=== PATIENT | male | born 1940 | race Caucasian/White ===

== ENCOUNTER 2020-06-20 11:08 | Inpatient (IN) ==
[2020-06-20] MEDS ORDERED: GuaiFENesin Liq 200 MG/10 ML UDC PO PRN (22:10)
[2020-06-20] MEDS: Sulfamethoxazole/Trimeth DS 1 EACH TABLET PO SCH (22:45)
[2020-06-20] MEDS: *HR* OxyCODONE Immed Rel 5 MG TABLET PO PRN (22:46)
[2020-06-20] MEDS ORDERED: Melatonin 3 MG TABLET PO ONE (23:01)
[2020-06-21] MEDS: *HR* OxyCODONE Immed Rel 5 MG TABLET PO PRN ×2 (05:29→20:34)
[2020-06-21 05:55] LABS: INR 1.4; Prothrombin Time 15.6 Seconds (9.4-12.1)
[2020-06-21 05:57] LABS: Basophils % 0.3 %; Eosinophils # 0.2 K/mcL (0.0-0.6); Hematocrit 38.6 % (37.5-50.1); Hemoglobin 12.7 g/dL (12.9-16.9); Immature Granulocytes % 0.5 % (0-4); Lymphocytes # 2.9 K/mcL (0.6-4.6); Lymphocytes % 24.5 %; Mean Corpuscular HGB Conc 32.9 g/dL (31.6-35.5); Mean Corpuscular Hemoglobin 27.5 pg (28.0-33.3); Mean Corpuscular Volume 83.5 fL (83.0-100.0); Mean Platelet Volume 10.3 fL (9.4-12.4); Monocytes # 1.3 K/mcL (0.0-1.3); Monocytes % 10.6 %; Neutrophils # 7.5 K/mcL (1.6-8.9); Platelet Count 300 K/mcL (140-400); Red Blood Count 4.62 M/mcL (4.19-5.50); Red Cell Distribution Width 15.7 % (11.5-14.5); Segmented Neutrophils % 62.1 %
[2020-06-21 05:58] LABS: Activated Partial Thrombo Time 33.7 Seconds (26.0-36.0)
[2020-06-21 06:07] LABS: BUN/Creatinine Ratio 33 (6-26); Blood Urea Nitrogen 28 mg/dL (8-23); Carbon Dioxide 25 mEq/L (23-29); Chloride 102 mEq/L (98-107); Glucose 102 mg/dL (70-105); Magnesium 1.8 mg/dL (1.6-2.6); Osmolality,Calculated 284 (280-300); Potassium 3.7 mEq/L (3.5-5.1); Sodium 134 mEq/L (136-145); eGFR For African Americans > 60 (> 60); eGFR For Non-African Americans > 60 (> 60)
[2020-06-21] MEDS: Sulfamethoxazole/Trimeth DS 1 EACH TABLET PO SCH ×2 (08:23→20:33)
[2020-06-21] MEDS: Furosemide 20 MG TABLET PO SCH (08:23)
[2020-06-21] MEDS: Sennosides 8.6 MG TABLET PO SCH (08:23)
[2020-06-21] MEDS: lisinopriL 20 MG TABLET PO SCH (08:23)
[2020-06-21] MEDS: *HR* Amiodarone 200 MG TABLET PO SCH (08:23)
[2020-06-21] MEDS ORDERED: Melatonin 3 MG TABLET PO SCH (21:00)
[2020-06-22] MEDS: Sennosides 8.6 MG TABLET PO SCH (08:42)
[2020-06-22] MEDS: Sulfamethoxazole/Trimeth DS 1 EACH TABLET PO SCH (08:42)
[2020-06-22] MEDS: *HR* Amiodarone 200 MG TABLET PO SCH (08:42)
[2020-06-22] MEDS: lisinopriL 20 MG TABLET PO SCH (08:42)
[2020-06-22] MEDS: Furosemide 20 MG TABLET PO SCH (08:42)
[2020-06-22] MEDS: *HR* OxyCODONE Immed Rel 5 MG TABLET PO PRN (08:42)
[2020-06-22 17:38] VITALS: BP 115/70
== END 2020-06-22 18:25 | disposition short-term general hospital (02) | DRG 945 ==
LOC: INPGRE 19:20
PROVIDERS: ADMIT Family Medicine; ATTEND Family Medicine

== ENCOUNTER 2020-07-04 17:38 | Inpatient (IN) ==
[2020-07-04] MEDS ORDERED: Albuterol 2.5 MG/3 ML NEBULIZER IH PRN (18:22)
[2020-07-04] MEDS: *HR* OxyCODONE Immed Rel 5 MG TABLET PO PRN (20:02)
[2020-07-04] MEDS: Budesonide/Formoterol 160/4.5 1 PUFF INH IH SCH (21:22)
[2020-07-05 06:09] LABS: Basophils % 0.2 %; Eosinophils # 0.3 K/mcL (0.0-0.6); Eosinophils % 2.4 %; Hematocrit 40.6 % (37.5-50.1); Hemoglobin 12.8 g/dL (12.9-16.9); Immature Granulocytes % 0.5 % (0-4); Lymphocytes % 22.5 %; Mean Corpuscular HGB Conc 31.5 g/dL (31.6-35.5); Mean Corpuscular Hemoglobin 27.4 pg (28.0-33.3); Mean Corpuscular Volume 86.9 fL (83.0-100.0); Mean Platelet Volume 10.3 fL (9.4-12.4); Monocytes % 8.4 %; Platelet Count 295 K/mcL (140-400); Red Blood Count 4.67 M/mcL (4.19-5.50); Red Cell Distribution Width 15.9 % (11.5-14.5); White Blood Count 12.2 K/mcL (4.3-11.1)
[2020-07-05 06:11] LABS: Lymphocytes # 2.8 K/mcL (0.6-4.6); Neutrophils # 8.1 K/mcL (1.6-8.9)
[2020-07-05 06:25] LABS: BUN/Creatinine Ratio 44 (6-26); Blood Urea Nitrogen 34 mg/dL (8-23); Calcium 8.8 mg/dL (8.6-10.3); Carbon Dioxide 25 mEq/L (23-29); Chloride 104 mEq/L (98-107); Glucose 94 mg/dL (70-105); Osmolality,Calculated 289 (280-300); Potassium 4.1 mEq/L (3.5-5.1); Sodium 136 mEq/L (136-145); eGFR For African Americans > 60 (> 60); eGFR For Non-African Americans > 60 (> 60)
[2020-07-05] MEDS ORDERED: Tiotropium 18 MCG inhalation IH ONE (07:35)
[2020-07-05] MEDS: Tiotropium 18 MCG inhalation IH SCH (07:39)
[2020-07-05] MEDS: Budesonide/Formoterol 160/4.5 1 PUFF INH IH SCH ×2 (07:39→20:19)
[2020-07-05] MEDS: Furosemide 40 MG TABLET PO SCH (08:53)
[2020-07-05] MEDS: *HR* Amiodarone 200 MG TABLET PO SCH (08:53)
[2020-07-05] MEDS: Sennosides 8.6 MG TABLET PO SCH (08:53)
[2020-07-05] MEDS: lisinopriL 20 MG TABLET PO SCH (08:53)
[2020-07-05] MEDS: Melatonin 3 MG TABLET PO PRN (20:36)
[2020-07-05] MEDS: *HR* OxyCODONE Immed Rel 5 MG TABLET PO PRN (20:36)
[2020-07-06] MEDS: Budesonide/Formoterol 160/4.5 1 PUFF INH IH SCH ×2 (07:45→21:31)
[2020-07-06] MEDS: Tiotropium 18 MCG inhalation IH SCH (07:46)
[2020-07-06] MEDS: *HR* Amiodarone 200 MG TABLET PO SCH (08:54)
[2020-07-06] MEDS: Sennosides 8.6 MG TABLET PO SCH (08:54)
[2020-07-06] MEDS: lisinopriL 20 MG TABLET PO SCH (08:54)
[2020-07-06] MEDS: Furosemide 40 MG TABLET PO SCH (08:54)
[2020-07-06] MEDS: Melatonin 3 MG TABLET PO PRN (21:29)
[2020-07-07] MEDS: *HR* OxyCODONE Immed Rel 5 MG TABLET PO PRN ×2 (06:13→21:31)
[2020-07-07] MEDS: Budesonide/Formoterol 160/4.5 1 PUFF INH IH SCH ×2 (07:21→17:41)
[2020-07-07] MEDS: Tiotropium 18 MCG inhalation IH SCH (07:22)
[2020-07-07] MEDS: *HR* Amiodarone 200 MG TABLET PO SCH (08:22)
[2020-07-07] MEDS: Furosemide 40 MG TABLET PO SCH (08:23)
[2020-07-07] MEDS: Sennosides 8.6 MG TABLET PO SCH (08:23)
[2020-07-07] MEDS: lisinopriL 20 MG TABLET PO SCH (08:23)
[2020-07-08] MEDS: *HR* OxyCODONE Immed Rel 5 MG TABLET PO PRN ×2 (05:15→22:03)
[2020-07-08] MEDS: Tiotropium 18 MCG inhalation IH SCH (06:58)
[2020-07-08] MEDS: Budesonide/Formoterol 160/4.5 1 PUFF INH IH SCH ×2 (06:58→21:37)
[2020-07-08] MEDS: Sennosides 8.6 MG TABLET PO SCH (08:42)
[2020-07-08] MEDS: lisinopriL 20 MG TABLET PO SCH (08:42)
[2020-07-08] MEDS: Furosemide 40 MG TABLET PO SCH (08:42)
[2020-07-08] MEDS: Famotidine 20 MG TABLET PO SCH (08:42)
[2020-07-08] MEDS: *HR* Amiodarone 200 MG TABLET PO SCH (08:42)
[2020-07-09] MEDS: *HR* OxyCODONE Immed Rel 5 MG TABLET PO PRN ×2 (05:12→21:41)
[2020-07-09] MEDS: *HR* Amiodarone 200 MG TABLET PO SCH (08:24)
[2020-07-09] MEDS: Furosemide 40 MG TABLET PO SCH (08:24)
[2020-07-09] MEDS: Sennosides 8.6 MG TABLET PO SCH (08:24)
[2020-07-09] MEDS: Famotidine 20 MG TABLET PO SCH (08:24)
[2020-07-09] MEDS: lisinopriL 20 MG TABLET PO SCH (08:25)
[2020-07-09] MEDS: Tiotropium 18 MCG inhalation IH SCH (09:50)
[2020-07-09] MEDS: Budesonide/Formoterol 160/4.5 1 PUFF INH IH SCH ×2 (09:52→21:59)
[2020-07-09] MEDS: Melatonin 3 MG TABLET PO PRN (21:41)
[2020-07-10 05:28] LABS: Hematocrit 39.6 % (37.5-50.1); Hemoglobin 12.6 g/dL (12.9-16.9); Mean Corpuscular HGB Conc 31.8 g/dL (31.6-35.5); Mean Corpuscular Hemoglobin 27.6 pg (28.0-33.3); Mean Corpuscular Volume 86.8 fL (83.0-100.0); Mean Platelet Volume 10.4 fL (9.4-12.4); Platelet Count 270 K/mcL (140-400); Red Blood Count 4.56 M/mcL (4.19-5.50); Red Cell Distribution Width 15.7 % (11.5-14.5); White Blood Count 11.5 K/mcL (4.3-11.1)
[2020-07-10 05:39] LABS: Alanine Aminotransferase 12 Units/L (7-52); Albumin 3.3 g/dL (3.5-5.7); Albumin/Globulin Ratio 1.2 (1.1-2.2); Alkaline Phosphatase 142 Units/L (34-104); Aspartate Amino Transferase 15 Units/L (13-39); BUN/Creatinine Ratio 36 (6-26); Bilirubin,Total 0.3 mg/dL (0.3-1.0); Blood Urea Nitrogen 33 mg/dL (8-23); Calcium 8.6 mg/dL (8.6-10.3); Carbon Dioxide 26 mEq/L (23-29); Chloride 105 mEq/L (98-107); Globulin 2.8 g/dL (2.4-3.5); Glucose 103 mg/dL (70-105); Magnesium 1.9 mg/dL (1.6-2.6); Osmolality,Calculated 294 (280-300); Potassium 4.2 mEq/L (3.5-5.1); Sodium 138 mEq/L (136-145); Total Protein 6.1 g/dL (6.4-8.9); eGFR For African Americans > 60 (> 60); eGFR For Non-African Americans > 60 (> 60)
[2020-07-10] MEDS: Famotidine 20 MG TABLET PO SCH (08:45)
[2020-07-10] MEDS: lisinopriL 20 MG TABLET PO SCH (08:46)
[2020-07-10] MEDS: Sennosides 8.6 MG TABLET PO SCH (08:46)
[2020-07-10] MEDS: *HR* Amiodarone 200 MG TABLET PO SCH (08:46)
[2020-07-10] MEDS: Furosemide 40 MG TABLET PO SCH (08:46)
[2020-07-10] MEDS: *HR* OxyCODONE Immed Rel 5 MG TABLET PO PRN ×2 (08:47→20:31)
[2020-07-10] MEDS: Tiotropium 18 MCG inhalation IH SCH (11:05)
[2020-07-10] MEDS: Budesonide/Formoterol 160/4.5 1 PUFF INH IH SCH ×2 (11:06→22:13)
[2020-07-10] MEDS: Melatonin 3 MG TABLET PO PRN (20:31)
[2020-07-11] MEDS: Famotidine 20 MG TABLET PO SCH (08:05)
[2020-07-11] MEDS: *HR* OxyCODONE Immed Rel 5 MG TABLET PO PRN ×2 (08:05→20:00)
[2020-07-11] MEDS: lisinopriL 20 MG TABLET PO SCH (08:05)
[2020-07-11] MEDS: Sennosides 8.6 MG TABLET PO SCH (08:05)
[2020-07-11] MEDS: Furosemide 40 MG TABLET PO SCH (08:06)
[2020-07-11] MEDS: *HR* Amiodarone 200 MG TABLET PO SCH (08:06)
[2020-07-11] MEDS: Budesonide/Formoterol 160/4.5 1 PUFF INH IH SCH ×2 (10:17→22:23)
[2020-07-11] MEDS: Tiotropium 18 MCG inhalation IH SCH (10:17)
[2020-07-11] MEDS: Melatonin 3 MG TABLET PO PRN (20:00)
[2020-07-12] MEDS: Tiotropium 18 MCG inhalation IH SCH (07:37)
[2020-07-12] MEDS: Budesonide/Formoterol 160/4.5 1 PUFF INH IH SCH ×2 (07:37→21:58)
[2020-07-12] MEDS: Sennosides 8.6 MG TABLET PO SCH (09:18)
[2020-07-12] MEDS: lisinopriL 20 MG TABLET PO SCH (09:19)
[2020-07-12] MEDS: *HR* Amiodarone 200 MG TABLET PO SCH (09:19)
[2020-07-12] MEDS: Famotidine 20 MG TABLET PO SCH (09:19)
[2020-07-12] MEDS: Furosemide 40 MG TABLET PO SCH (09:19)
[2020-07-12] MEDS: Melatonin 3 MG TABLET PO PRN (20:32)
[2020-07-12] MEDS: *HR* OxyCODONE Immed Rel 5 MG TABLET PO PRN (20:35)
[2020-07-13] MEDS: *HR* OxyCODONE Immed Rel 5 MG TABLET PO PRN (04:24)
[2020-07-13 08:54] VITALS: BP 131/63
[2020-07-13] MEDS: Furosemide 40 MG TABLET PO SCH (09:18)
[2020-07-13] MEDS: lisinopriL 20 MG TABLET PO SCH (09:18)
[2020-07-13] MEDS: Famotidine 20 MG TABLET PO SCH (09:19)
[2020-07-13] MEDS: *HR* Amiodarone 200 MG TABLET PO SCH (09:19)
[2020-07-13] MEDS: Sennosides 8.6 MG TABLET PO SCH (09:19)
[2020-07-13] MEDS: Budesonide/Formoterol 160/4.5 1 PUFF INH IH SCH (10:19)
[2020-07-13] MEDS: Tiotropium 18 MCG inhalation IH SCH (10:20)
[2020-07-13] MEDS ORDERED: FLU Vac QV 20-21 (6Month+)/PF 0.5 ML SYRINGE IM ONE (10:24)
== END 2020-07-13 11:40 | disposition home or self-care (01) | DRG 57 ==
LOC: INPGRE 17:51
PROVIDERS: ADMIT Family Medicine; ATTEND Family Medicine